=== PATIENT | male | born 1935 | race Caucasian/White ===

== ENCOUNTER 2017-02-18 19:23 | Emergency (ER) | payer OTHER, BC ==
[~2017-02-18] VITALS: Ht 175.3 cm; Wt 77.5 kg
[2017-02-18 20:23] VITALS: BP 70/55
[2017-02-18] MEDS ORDERED: LASIX40 MG PO (22:16)
[2017-02-18] MEDS ORDERED: KLOR-CON M2020 MEQ PO (22:17)
[2017-02-18] MEDS ORDERED: TAB-A-VITE1 EACH PO (22:17)
[2017-02-18] MEDS ORDERED: LANOXIN125 MCG PO (22:18)
[2017-02-18] MEDS ORDERED: BENADRYL25 MG PO (22:20)
[2017-02-18] MEDS ORDERED: NAMENDA5 MG PO (22:20)
[2017-02-18] MEDS ORDERED: MILK OF MAGN PO (22:22)
[2017-02-18] MEDS ORDERED: FLEET ENEMA-AD118 ML PR (22:23)
[2017-02-18] MEDS ORDERED: DUONEB 2.5-0.5 M3 ML AEROSOL (22:23)
[2017-02-18] MEDS ORDERED: LIPITOR20 MG PO (22:29)
[2017-02-18] MEDS ORDERED: XARELTO15 MG PO (22:29)
[2017-02-18] MEDS ORDERED: LANOXIN PO (22:30)
[2017-02-18] MEDS ORDERED: TYLENOL REGULA325 MG PO (22:31)
[2017-02-18] MEDS ORDERED: DULCOLAX10 MG PR (22:31)
== END 2017-02-19 03:11 ==
LOC: EME 19:23 → EDOF 21:51 → ENRESERV 22:06 → CANRESERV 22:06
DX: I46.9 Cardiac arrest, cause unspecified (principal); J96.91 Respiratory failure, unspecified with hypoxia; Z51.5 Encounter for palliative care; I10 Essential (primary) hypertension; Z85.9 Personal history of malignant neoplasm, unspecified; Z90.49 Acquired absence of other specified parts of digestive tract; Z88.0 Allergy status to penicillin; Z88.1 Allergy status to other antibiotic agents
CPT/HCPCS: 99281; 99285; J2270